=== PATIENT | male | born 1970 | race Caucasian/White ===

== ENCOUNTER 2020-08-31 18:08 | Emergency (ER) | payer OTHER, SELFPAY ==
--- NOTE | ~2020-08-31 | XR_ITS ---
EXAMINATION: XR ORBITS CLINICAL INFORMATION: Right orbital trauma COMPARISON: None TECHNIQUE: 5 views of the orbits were obtained. FINDINGS: There is no fracture. No bone, joint or soft tissue abnormality is demonstrated. The visualized facial bones and paranasal sinuses appear normal. XR/XR orbit min 4V IMPRESSION: Unremarkable examination.
[2020-08-31 18:55] VITALS: BP 173/96; PULSE 64; RESP 16; TEMP 36.5; O2SAT 99; BMI 28.7
--- NOTE | 2020-08-31 19:33 | ED.HEATRA ---
HPI - Head Injury General Chief complaint: Head Injury Stated complaint: face injury Time Seen by Provider: 08/31/20 18:56 History of Present Illness HPI Narrative: Patient complains of bruising and swelling to the right orbit after bumping heads with his dog, no loss of consciousness no headache no neck pain no numbness or tingling no dizziness Related Data Allergies Allergy/AdvReac Type Severity Reaction Status Date / Time Iodinated Contrast Media Allergy Intermediate HIVES Verified 08/31/20 18:54 [IV CONTRAST] morphine [MORPHINE] Allergy Intermediate HIVES, Verified 08/31/20 18:54 SWELLING Review of Systems Review of Systems: Positive for right-sided facial pain No headache no vision change no loss of consciousness no dizziness no confusion no weakness numbness or tingling, no neck pain no back pain no other injury PMFSH Past Medical History Source: nursing notes reviewed Medical History (Updated 09/01/20 @ 00:01 by Kandace Fraire) Arthritis Kidney stones Social History Social History Smoking Status: Never smoker Use of substances other than those prescribed or required for medical reasons: No Advance Directives: No Advance Directives Information Provided: Yes Physical Exam Vital Signs: Vital Signs: Last Vital Signs Temp 97.7 F 08/31/20 18:55 Pulse 64 08/31/20 18:55 Resp 16 08/31/20 18:55 BP 173/96 H 08/31/20 18:55 Pulse Ox 99 08/31/20 18:55 Body Mass Index 28.7 General appearance is no acute distress comfortable relaxed cooperative A&O x3 The scalp has no tenderness no hematoma no defect The pupils are equal round reactive to light, extraocular motions are intact the ears no hemotympanum The right orbit has ecchymosis and some tenderness around the lateral orbit and some swelling no crepitus, eyes have full extraocular movements The mandible is nontender The neck is supple and nontender Respiratory no distress The back full range of motion The skin no lacerations or rashes Neuro motor is 5 5 x 4, sensation is intact, gait and balance are normal, speech both spoken and understanding are normal, cranial nerves 2-12 intact as tested Course Course Course Narrative: Right orbit x-ray was normal Patient's exam was positive for a contusion around the eye right orbit, no vision changes no loss consciousness and patient is discharged comfortable and well appearing Discharge Plan Discharge Clinical Impression: Contusion of face Patient Disposition: Home, Self-Care Additional Instructions: The x-ray of her right orbit was normal and there is no sign of any serious injury at this point Apply ice as needed Return any time any concerns Interventions: ED Discharge Assessment Last Done: 08/31/20 19:43 Discharge Date/Time: 08/31/20 19:43
== END 2020-08-31 19:43 | disposition home or self-care (01) ==
PROVIDERS: Emergency Provider Emergency Medicine Emergency Medical Services
DX: S00.11XA Contusion of right eyelid and periocular area, initial encounter (principal); W54.1XXA Struck by dog, initial encounter; Y93.83 Activity, rough housing and horseplay; Y92.019 Unspecified place in single-family (private) house as the place of occurrence of the external cause; Y99.9 Unspecified external cause status
CPT/HCPCS: 70200; 99283; 99284